=== PATIENT | female | born 1975 | race Caucasian/White ===

== ENCOUNTER 2017-08-06 21:59 | Emergency (ER) | payer OTHER ==
[~2017-08-06] VITALS: Ht 177.8 cm; Wt 163.3 kg
[~2017-08-06 21:59] MED LIST: APAP500 PO; BACTRIM DS TAB1 EACH PO; BACTROBAN15 GM TP; CEPHALEXIN 500500 M3 PO; HYDROCODONE-AP1 EAC6 PO; IBUPROFEN 200200 M1 PO; LOTRIMIN AF150 GM TP; NORCO 5-325 TA1 EAC1 PO
[2017-08-06 23:09] VITALS: BP 110/69
== END 2017-08-06 23:09 | disposition home or self-care (01) ==
LOC: M.ERS 21:59
DX: M79.89 Other specified soft tissue disorders (principal); J44.9 Chronic obstructive pulmonary disease, unspecified; G43.909 Migraine, unspecified, not intractable, without status migrainosus; M19.90 Unspecified osteoarthritis, unspecified site; F17.210 Nicotine dependence, cigarettes, uncomplicated

== ENCOUNTER 2018-08-02 20:21 | Emergency (ER) | payer OTHER ==
[~2018-08-02] VITALS: Ht 177.8 cm; Wt 167.8 kg
[2018-08-02 20:30] VITALS: BP 177/67
[2018-08-02] MEDS ORDERED: NOHOMEMEDICATIONS (20:34)
[2018-08-02] MEDS ORDERED: NABUMETONE 750750 M1 PO (20:38)
[2018-08-02] MEDS ORDERED: AMOXICILLIN 50500 MG PO (20:38)
[2018-08-02] MEDS ORDERED: TRAMADOL 50 MG50 MG PO (20:39)
== END 2018-08-02 21:04 | disposition home or self-care (01) ==
LOC: M.ERS 20:21
DX: K08.89 Other specified disorders of teeth and supporting structures (principal); G47.30 Sleep apnea, unspecified; J44.9 Chronic obstructive pulmonary disease, unspecified; G43.909 Migraine, unspecified, not intractable, without status migrainosus; M19.90 Unspecified osteoarthritis, unspecified site; E66.01 Morbid (severe) obesity due to excess calories; Z68.43 Body mass index [BMI] 50.0-59.9, adult; F17.210 Nicotine dependence, cigarettes, uncomplicated; Z88.8 Allergy status to other drugs, medicaments and biological substances

== ENCOUNTER 2018-08-05 12:29 | Emergency (ER) | payer OTHER ==
[~2018-08-05] VITALS: Ht 177.8 cm; Wt 167.8 kg
[~2018-08-05 12:29] MED LIST changes: +AMOXICILLIN 50500 MG PO; +NABUMETONE 750750 M1 PO; +NOHOMEMEDICATIONS; +TRAMADOL 50 MG50 MG PO
[2018-08-05] MEDS ORDERED: PERCOCET 5-3251 EACH PO (12:54)
[2018-08-05] MEDS ORDERED: ZOFRAN4 MG PO (12:54)
[2018-08-05] MEDS ORDERED: CLEOCIN HCL300 MG PO (12:54)
[2018-08-05 13:08] VITALS: BP 152/82
== END 2018-08-05 13:08 | disposition home or self-care (01) ==
LOC: M.ERS 12:29
DX: K04.7 Periapical abscess without sinus (principal); G47.30 Sleep apnea, unspecified; J44.9 Chronic obstructive pulmonary disease, unspecified; G43.909 Migraine, unspecified, not intractable, without status migrainosus; M19.90 Unspecified osteoarthritis, unspecified site; E66.01 Morbid (severe) obesity due to excess calories; F17.210 Nicotine dependence, cigarettes, uncomplicated; Z68.43 Body mass index [BMI] 50.0-59.9, adult; Z88.6 Allergy status to analgesic agent

== ENCOUNTER 2018-08-29 10:57 | Emergency (ER) | payer OTHER ==
[~2018-08-29] VITALS: Ht 177.8 cm; Wt 169.2 kg
[~2018-08-29 10:57] MED LIST changes: +CLEOCIN HCL300 MG PO; +PERCOCET 5-3251 EACH PO; +ZOFRAN4 MG PO
[2018-08-29] MEDS ORDERED: TRAMADOL 50 MG50 MG PO (11:27)
[2018-08-29] MEDS ORDERED: KEFLEX500 M1 PO (11:27)
[2018-08-29 11:46] VITALS: BP 144/83
== END 2018-08-29 11:47 | disposition home or self-care (01) ==
LOC: M.ERS 10:57
DX: S20.461A Insect bite (nonvenomous) of right back wall of thorax, initial encounter (principal); F17.210 Nicotine dependence, cigarettes, uncomplicated; G47.30 Sleep apnea, unspecified; J44.9 Chronic obstructive pulmonary disease, unspecified; G43.909 Migraine, unspecified, not intractable, without status migrainosus; M19.90 Unspecified osteoarthritis, unspecified site; E66.01 Morbid (severe) obesity due to excess calories; Z68.43 Body mass index [BMI] 50.0-59.9, adult; Z88.8 Allergy status to other drugs, medicaments and biological substances; W57.XXXA Bitten or stung by nonvenomous insect and other nonvenomous arthropods, initial encounter; Y92.89 Other specified places as the place of occurrence of the external cause; Y93.89 Activity, other specified; Y99.8 Other external cause status

== ENCOUNTER 2019-06-11 10:48 | Emergency (ER) | payer OTHER ==
[~2019-06-11] VITALS: Ht 175.3 cm; Wt 177.4 kg
[~2019-06-11 10:48] MED LIST changes: +KEFLEX500 M1 PO
[2019-06-11 11:08] VITALS: BP 159/120
[2019-06-11] MEDS ORDERED: NYSTATIN 100,0015 G1 TP (11:45)
== END 2019-06-11 11:51 | disposition home or self-care (01) ==
LOC: M.ERS 10:48
DX: B37.9 Candidiasis, unspecified (principal); L30.8 Other specified dermatitis; G47.30 Sleep apnea, unspecified; M19.90 Unspecified osteoarthritis, unspecified site; G43.909 Migraine, unspecified, not intractable, without status migrainosus; J44.9 Chronic obstructive pulmonary disease, unspecified; Z88.8 Allergy status to other drugs, medicaments and biological substances